=== PATIENT | male | born 1970 | race American Indian/Alaskan Native ===

== ENCOUNTER 2017-08-03 17:45 | Observation (INO) | payer OTHER ==
[2017-08-03 17:45] VITALS: BMI 27.0
--- NOTE | 2017-08-03 18:21 | C.PDOC ---
History Of Present Illness <Patti Donovan - Last Filed: 08/03/17 19:10> <Taylor Allison - Last Filed: 08/03/17 21:52> 46 y/o male presents to ED with complaints of "squeezing" chest pain for 3 days. Patient states he went to see PMD who told him he did not have ECG machine in office and advised he come to ED for evaluation. Patient is speaking in full sentences and denies, cough, sob, nausea, vomiting or any other complaints at this time. (Patti Donovan) History Per: Patient History/Exam Limitations: no limitations Onset/Duration Of Symptoms: Days Current Symptoms Are (Timing): Still Present <Patti Donovan - Last Filed: 08/03/17 19:10> <Taylor Allison - Last Filed: 08/03/17 21:52> Time Seen by Provider: 08/03/17 18:03 Chief Complaint (Nursing): Chest Pain Past Medical History Reviewed: Historical Data, Nursing Documentation, Vital Signs - Medical History PMH: No Chronic Diseases Surgical History: No Surg Hx Family History: States: No Known Family Hx - Social History Hx Alcohol Use: Yes Hx Substance Use: No - Immunization History Hx Tetanus Toxoid Vaccination: No Hx Influenza Vaccination: No Hx Pneumococcal Vaccination: No <Patti Donovan - Last Filed: 08/03/17 19:10> Vital Signs: Last Vital Signs Temp 98.6 F 08/03/17 19:43 Pulse 82 08/03/17 20:15 Resp 14 08/03/17 20:15 BP 124/72 08/03/17 20:15 Pulse Ox 96 08/03/17 20:15 Review Of Systems Constitutional: Negative for: Fever, Chills Cardiovascular: Positive for: Chest Pain Respiratory: Negative for: Cough, Shortness of Breath Gastrointestinal: Negative for: Nausea, Vomiting Skin: Negative for: Rash <Patti Donovan - Last Filed: 08/03/17 19:10> Physical Exam - Physical Exam Appears: Non-toxic, No Acute Distress Skin: Warm, Dry, No Rash Head: Atraumatic, Normacephalic Oral Mucosa: Moist Neck: Supple Chest: Symmetrical Cardiovascular: Rhythm Regular Respiratory: Normal Breath Sounds, No Rales, No Rhonchi, No Wheezing Gastrointestinal/Abdominal: Soft, No Tenderness, No Guarding, No Rebound Extremity: Normal ROM, Capillary Refill (<2 seconds) Neurological/Psych: Oriented x3 <Patti Donovan - Last Filed: 08/03/17 19:10> ED Course And Treatment - Laboratory Results Result Diagrams: 08/03/17 18:34 02 18:34 ECG: Interpreted By Me, Viewed By Me ECG Rhythm: Sinus Rhythm Interpretation Of ECG: Diffuse T wave abnormality Rate From EC (BPM ) O2 Sat by Pulse Oximetry: 98 (RA) Pulse Ox Interpretation: Normal - Radiology CXR: Interpreted by Me CXR Interpretation: Yes: No Acute Disease Progress Note: ECG, CXR, Blood work, UA ordered. Aspirin administered <Patti Donovan - Last Filed: 08/03/17 19:10> - Laboratory Results Result Diagrams: 08/03/17 18:34 08/03/17 18:34 <Taylor Allison - Last Filed: 08/03/17 21:52> Disposition - Disposition Disposition Time: 19:10 <Patti Donovan - Last Filed: 08/03/17 19:10> <Taylor Allison - Last Filed: 08/03/17 21:52> - Disposition Condition: FAIR - Clinical Impression Clinical Impression: Chest pain - PA / DIE CLEANER / Resident Statement MD/DO has reviewed & agrees with the documentation as recorded. - Scribe Statement The provider has reviewed the documentation as recorded by the Scribe <Patti Donovan - Last Filed: 08/03/17 19:10> <Taylor Allison - Last Filed: 08/03/17 21:52> - Scribe Statement Diaz Parker All medical record entries made by the Scribe were at my direction and personally dictated by me. I have reviewed the chart and agree that the record accurately reflects my personal performance of the history, physical exam, medical decision making, and the department course for this patient. I have also personally directed, reviewed, and agree with the discharge instructions and disposition. (Patti Donovan) Physician Patient Turnover Patient Signed Over To: Taylor Allison Handoff Comments: troponin pending, dispo pending <Patti Donovan - Last Filed: 08/03/17 19:10> Addendum <Patti Donovan - Last Filed: 08/03/17 19:10> <Taylor Allison - Last Filed: 08/03/17 21:52> Addendum: 08/03/17 21:51 Patient having constant substernal chest pain described as pressure and squeezing, not associated with SOB, palpitations, nausea/vomiting, food intake. EKG shows T wave inversions III, aVF + LVH. Discussed patient with Dr. Kyle , agrees with tele obs for chest pain, r/o ACS. Would like Dr. Beckford for cardio , consult entered. (Taylor Allison)
[2017-08-03 18:42] LABS: BASO # 0.1 K/uL (0.0-0.2); BASO % 0.8 % (0.0-2.0); EOS # 0.1 K/uL (0.0-0.7); EOS % 0.8 % (0.0-4.0); HEMOGLOBIN 13.6 g/dL (12.0-18.0); LYMPH # 2.5 K/uL (1.0-4.3); LYMPH % 36.2 % (20.0-40.0); MEAN CELL VOLUME 80.6 fL (80.0-94.0); MEAN CORPUSCULAR HEMOGLOBIN 26.6 pg (27.0-31.0); MEAN PLATELET VOLUME 9.4 fL (7.2-11.7); MONO % 14.1 % (0.0-10.0); NEUT # 3.3 K/uL (1.8-7.0); NEUT % 48.1 % (50.0-75.0); RBC 5.1 Mil/uL (4.40-5.90); RED CELL DISTRIBUTION WIDTH 13.3 % (11.5-14.5); WHITE BLOOD COUNT 6.8 K/uL (4.8-10.8)
[2017-08-03 18:50] LABS: ALB/GLOB RATIO 1.3 (1.0-2.1); ALBUMIN 4.2 g/dL (3.5-5.0); ALT/SGPT 23 U/L (21-72); AST/SGOT 19 U/L (17-59); BLOOD UREA NITROGEN 13 mg/dL (9-20); CALCIUM 8.5 mg/dl (8.6-10.4); GFR AFRICAN-AMERICAN > 60; GFR NON-AFRICAN AMERICAN > 60
[2017-08-03 18:51] LABS: INR 1.1; PROTHROMBIN TIME 12.6 SECONDS (9.7-12.2)
[2017-08-03 18:59] LABS: CK-MB 0.85 ng/mL (0.0-3.38)
[2017-08-03 19:20] LABS: URINE BACTERIA RARE (<OCC)
[2017-08-03 19:21] LABS: PH,URINE 6.5 (5.0-8.0); URINE BILIRUBIN NEGATIVE (NEGATIVE); URINE BLOOD NEGATIVE (NEGATIVE); URINE CLARITY CLEAR (Clear); URINE COLOR YELLOW (YELLOW); URINE GLUCOSE (UA) NEGATIVE (Normal); URINE LEUKOCYTE ESTERASE NEGATIVE Leu/uL (Negative); URINE NITRATE NEGATIVE (NEGATIVE); URINE PROTEIN NEGATIVE (NEGATIVE); URINE UROBILINOGEN 0.2 mg/dL (0.2-1.0)
[2017-08-04 02:51] LABS: CK-MB 0.78 ng/mL (0.0-3.38)
--- NOTE | 2017-08-04 08:44 | RAD ---
Chest x-ray single frontal view History: Chest pain. Comparison: None available. Findings: No focal infiltrate or effusion. Heart size within normal limits. Impression: No focal infiltrate or effusion.
[2017-08-04] MEDS: Enoxaparin 40 mg Syringe SC SCH (12:33)
[2017-08-04 13:54] LABS: BASO % 0.6 % (0.0-2.0); EOS % 0.7 % (0.0-4.0); HEMOGLOBIN 14.5 g/dL (12.0-18.0); LYMPH # 1.8 K/uL (1.0-4.3); LYMPH % 36.6 % (20.0-40.0); MEAN CORPUSCULAR HEMOGLOBIN 26.9 pg (27.0-31.0); MEAN CORPUSCULAR HGB CONC 33.2 g/dL (33.0-37.0); MEAN PLATELET VOLUME 9.3 fL (7.2-11.7); MONO # 0.6 K/uL (0.0-0.8); MONO % 12.3 % (0.0-10.0); NEUT # 2.4 K/uL (1.8-7.0); NEUT % 49.8 % (50.0-75.0); NRBC % 0.1 % (0.0-2.0); RBC 5.41 Mil/uL (4.40-5.90); RED CELL DISTRIBUTION WIDTH 13.4 % (11.5-14.5); WHITE BLOOD COUNT 4.8 K/uL (4.8-10.8)
[2017-08-04 14:16] LABS: ALB/GLOB RATIO 1.2 (1.0-2.1); ALBUMIN 4.2 g/dL (3.5-5.0); ALT/SGPT 23 U/L (21-72); AST/SGOT 20 U/L (17-59); BLOOD UREA NITROGEN 12 mg/dL (9-20); GFR AFRICAN-AMERICAN > 60; GFR NON-AFRICAN AMERICAN > 60
[2017-08-04 15:10] LABS: CK-MB 0.66 ng/mL (0.0-3.38)
--- NOTE | 2017-08-04 16:04 | CP.PCM.CON ---
<Benjamín Barrera - Last Filed: 08/04/17 17:55> History of Present Illness - History of Present Illness History of Present Illness: Cardiology Consult Note for Dr. Beckford CC: Chest Pain Pt is a 46 yo M with no significant past medical history presents to due to chest pain for the past 3 days. Pt states that CP is constant, midsternal, and feels like a squeezing sensation. Pt denies radiation. Pt stated that he did feel bloated and that the chest pain could be due to increased gas. He tried drinking ellyn shruti to calm is stomach, but that did not relieve the pain. Pt went to his PMDs office and was instructed to proceed to the ED. Pt states that pain is worsened with exertion and with deep inspiration. Pt denies any alleviating factors or prior occurrences. Currently, patient states that pain is still present, but improving. Pt denies SOB, palpitations, n/v/d, abdominal pain, fever, chills, MELÉNDEZ, or dizziness. PMH: Denied Surg: Foot surgery All: NKDA FHx: non-contributory SH: Social EtOH use, denied tobacco or illicit drug use PMD: Dr. Partida Review of Systems - Review of Systems Review of Systems: 12 point ROS reviewed and is negative other than what is stated in HPI. Past Patient History - Infectious Disease Hx of Infectious Diseases: None - Past Social History Smoking Status: Never Smoked - MUSCULOSKELETAL/RHEUMATOLOGICAL Hx Falls: No - PSYCHIATRIC Hx Substance Use: No - SURGICAL HISTORY Hx Surgeries: Yes Hx Orthopedic Surgery: Yes - ANESTHESIA Hx Anesthesia: Yes Hx Anesthesia Reactions: No Meds Allergies/Adverse Reactions: Allergies Allergy/AdvReac Type Severity Reaction Status Date / Time No Known Allergies Allergy Verified 08/03/17 17:51 - Medications Medications: Current Medications Enoxaparin Sodium (Lovenox) 40 mg SC DAILY [facility] Last Admin: 08/04/17 12:33 Dose: 40 mg Physical Exam - Constitutional Appears: No Acute Distress - Head Exam Head Exam: NORMAL INSPECTION - Eye Exam Eye Exam: Normal appearance - ENT Exam ENT Exam: Normal Exam - Neck Exam Neck exam: Positive for: Normal Inspection - Respiratory Exam Respiratory Exam: Clear to Auscultation Bilateral. absent: Accessory Muscle Use , Prolonged Expiratory Phase, Rales, Rhonchi, Wheezes - Cardiovascular Exam Cardiovascular Exam: RRR, +S1, +S2. absent: Diastolic murmur, Gallop, Rubs, Systolic Murmur - GI/Abdominal Exam GI & Abdominal Exam: Soft. absent: Distended, Guarding, Rebound, Tenderness - Extremities Exam Extremities exam: Positive for: normal inspection - Back Exam Back exam: NORMAL INSPECTION - Skin Skin Exam: Dry, Intact, Normal Color, Warm Results - Vital Signs Recent Vital Signs: Last Vital Signs Temp 98.1 F 08/04/17 07:15 Pulse 56 L 08/04/17 07:15 Resp 20 08/04/17 07:15 BP 100/64 08/04/17 07:15 Pulse Ox 97 08/04/17 07:15 - Labs Result Diagrams: 08/04/17 13:41 08/04/17 13:41 Labs: Laboratory Results - last 24 hr 08/03/17 08/03/17 08/03/17 18:34 18:34 18:34 WBC 6.8 RBC 5.10 Hgb 13.6 Hct 41.1 MCV 80.6 MCH 26.6 L MCHC 33.0 RDW 13.3 Plt Count 189 MPV 9.4 Neut % (Auto) 48.1 L Lymph % (Auto) 36.2 [place] % (Auto) 14.1 H Eos % (Auto) 0.8 Baso % (Auto) 0.8 Neut # (Auto) 3.3 Lymph # (Auto) 2.5 [place] # (Auto) 1.0 H Eos # (Auto) 0.1 Baso # (Auto) 0.1 PT 12.6 H INR 1.1 APTT 33 Sodium 141 Potassium 3.8 Chloride 100 Carbon Dioxide 30 Anion Gap 14 BUN 13 Creatinine 1.1 Est GFR ( Amer) > 60 Est GFR (Non-Af Amer) > 60 Random Glucose 99 Calcium 8.5 L Total Bilirubin 0.4 AST 19 ALT 23 Alkaline Phosphatase 45 Total Creatine Kinase 211 H CK-MB (Mass) 0.85 Troponin I < 0.0120 Total Protein 7.4 Albumin 4.2 Globulin 3.2 Albumin/Globulin Ratio 1.3 Urine Color Urine Clarity Urine pH Ur Specific [place] Urine Protein Urine Glucose (UA) Urine Ketones Urine Blood Urine Nitrate Urine Bilirubin Urine Urobilinogen Ur Leukocyte Esterase Urine WBC (Auto) Urine RBC (Auto) Urine Bacteria 08/03/17 08/04/17 08/04/17 19:13 02:25 13:41 WBC 4.8 RBC 5.41 Hgb 14.5 Hct 43.8 MCV 81.0 MCH 26.9 L MCHC 33.2 RDW 13.4 Plt Count 187 MPV 9.3 Neut % (Auto) 49.8 L Lymph % (Auto) 36.6 [place] % (Auto) 12.3 H Eos % (Auto) 0.7 Baso % (Auto) 0.6 Neut # (Auto) 2.4 Lymph # (Auto) 1.8 [place] # (Auto) 0.6 Eos # (Auto) 0.0 Baso # (Auto) 0.0 PT INR APTT Sodium Potassium Chloride Carbon Dioxide Anion Gap BUN Creatinine Est GFR ( Amer) Est GFR (Non-Af Amer) Random Glucose Calcium Total Bilirubin AST ALT Alkaline Phosphatase Total Creatine Kinase 197 H CK-MB (Mass) 0.78 Troponin I < 0.0120 Total Protein Albumin Globulin Albumin/Globulin Ratio Urine Color Yellow Urine Clarity Clear Urine pH 6.5 Ur Specific [place] 1.020 Urine Protein Negative Urine Glucose (UA) Negative Urine Ketones Negative Urine Blood Negative Urine Nitrate Negative Urine Bilirubin Negative Urine Urobilinogen 0.2 Ur Leukocyte Esterase Negative Urine WBC (Auto) < 1 Urine RBC (Auto) 1 Urine Bacteria Rare 08/04/17 08/04/17 13:41 14:40 WBC RBC Hgb Hct MCV MCH MCHC RDW Plt Count MPV Neut % (Auto) Lymph % (Auto) [place] % (Auto) Eos % (Auto) Baso % (Auto) Neut # (Auto) Lymph # (Auto) [place] # (Auto) Eos # (Auto) Baso # (Auto) PT INR APTT Sodium 140 Potassium 4.4 Chloride 100 Carbon Dioxide 29 Anion Gap 16 BUN 12 Creatinine 0.8 Est GFR ( Amer) > 60 Est GFR (Non-Af Amer) > 60 Random Glucose 82 Calcium 9.0 Total Bilirubin 0.7 AST 20 ALT 23 Alkaline Phosphatase 55 Total Creatine Kinase 186 H CK-MB (Mass) 0.66 Troponin I < 0.0120 Total Protein 7.8 Albumin 4.2 Globulin 3.6 Albumin/Globulin Ratio 1.2 Urine Color Urine Clarity Urine pH Ur Specific [place] Urine Protein Urine Glucose (UA) Urine Ketones Urine Blood Urine Nitrate Urine Bilirubin Urine Urobilinogen Ur Leukocyte Esterase Urine WBC (Auto) Urine RBC (Auto) Urine Bacteria Assessment & Plan - Assessment and Plan (Free Text) Assessment: 46 yo M with no significant past medical history will be evaluated for chest pain and treated accordingly. Plan: 1. Chest Pain - ACS ruled out as troponin negative x3 - EKG showed signs of left heart strain - Nuclear stress test showed mild anterolateral defect - Plan for Cardiac catherization on Monday - Cont ASA, Lopressor 2. GI/DVT PPx - As per primary Pt seen and discussed in detail with Dr. Beckford. Naveen Barrera, PGY1 <Miguel A Beckford - Last Filed: 08/04/17 18:01> Meds - Medications Medications: Current Medications Aspirin (Aspirin Chewable) 81 mg PO DAILY [facility] Enoxaparin Sodium (Lovenox) 40 mg SC DAILY [facility] Last Admin: 08/04/17 12:33 Dose: 40 mg Metoprolol Tartrate (Lopressor) 25 mg PO BRKDIN [facility] Results - Vital Signs Recent Vital Signs: Last Vital Signs Temp 98.4 F 08/04/17 16:34 Pulse 66 08/04/17 16:34 Resp 20 08/04/17 16:34 BP 115/73 08/04/17 16:34 Pulse Ox 95 08/04/17 16:34 - Labs Result Diagrams: 08/04/17 13:41 08/04/17 13:41 Labs: Laboratory Results - last 24 hr 08/03/17 08/03/17 08/03/17 18:34 18:34 18:34 WBC 6.8 RBC 5.10 Hgb 13.6 Hct 41.1 MCV 80.6 MCH 26.6 L MCHC 33.0 RDW 13.3 Plt Count 189 MPV 9.4 Neut % (Auto) 48.1 L Lymph % (Auto) 36.2 [place] % (Auto) 14.1 H Eos % (Auto) 0.8 Baso % (Auto) 0.8 Neut # (Auto) 3.3 Lymph # (Auto) 2.5 [place] # (Auto) 1.0 H Eos # (Auto) 0.1 Baso # (Auto) 0.1 PT 12.6 H INR 1.1 APTT 33 Sodium 141 Potassium 3.8 Chloride 100 Carbon Dioxide 30 Anion Gap 14 BUN 13 Creatinine 1.1 Est GFR ( Amer) > 60 Est GFR (Non-Af Amer) > 60 Random Glucose 99 Calcium 8.5 L Total Bilirubin 0.4 AST 19 ALT 23 Alkaline Phosphatase 45 Total Creatine Kinase 211 H CK-MB (Mass) 0.85 Troponin I < 0.0120 Total Protein 7.4 Albumin 4.2 Globulin 3.2 Albumin/Globulin Ratio 1.3 Urine Color Urine Clarity Urine pH Ur Specific [place] Urine Protein Urine Glucose (UA) Urine Ketones Urine Blood Urine Nitrate Urine Bilirubin Urine Urobilinogen Ur Leukocyte Esterase Urine WBC (Auto) Urine RBC (Auto) Urine Bacteria 08/03/17 08/04/17 08/04/17 19:13 02:25 13:41 WBC 4.8 RBC 5.41 Hgb 14.5 Hct 43.8 MCV 81.0 MCH 26.9 L MCHC 33.2 RDW 13.4 Plt Count 187 MPV 9.3 Neut % (Auto) 49.8 L Lymph % (Auto) 36.6 [place] % (Auto) 12.3 H Eos % (Auto) 0.7 Baso % (Auto) 0.6 Neut # (Auto) 2.4 Lymph # (Auto) 1.8 [place] # (Auto) 0.6 Eos # (Auto) 0.0 Baso # (Auto) 0.0 PT INR APTT Sodium Potassium Chloride Carbon Dioxide Anion Gap BUN Creatinine Est GFR ( Amer) Est GFR (Non-Af Amer) Random Glucose Calcium Total Bilirubin AST ALT Alkaline Phosphatase Total Creatine Kinase 197 H CK-MB (Mass) 0.78 Troponin I < 0.0120 Total Protein Albumin Globulin Albumin/Globulin Ratio Urine Color Yellow Urine Clarity Clear Urine pH 6.5 Ur Specific [place] 1.020 Urine Protein Negative Urine Glucose (UA) Negative Urine Ketones Negative Urine Blood Negative Urine Nitrate Negative Urine Bilirubin Negative Urine Urobilinogen 0.2 Ur Leukocyte Esterase Negative Urine WBC (Auto) < 1 Urine RBC (Auto) 1 Urine Bacteria Rare 08/04/17 08/04/17 13:41 14:40 WBC RBC Hgb Hct MCV MCH MCHC RDW Plt Count MPV Neut % (Auto) Lymph % (Auto) [place] % (Auto) Eos % (Auto) Baso % (Auto) Neut # (Auto) Lymph # (Auto) [place] # (Auto) Eos # (Auto) Baso # (Auto) PT INR APTT Sodium 140 Potassium 4.4 Chloride 100 Carbon Dioxide 29 Anion Gap 16 BUN 12 Creatinine 0.8 Est GFR ( Amer) > 60 Est GFR (Non-Af Amer) > 60 Random Glucose 82 Calcium 9.0 Total Bilirubin 0.7 AST 20 ALT 23 Alkaline Phosphatase 55 Total Creatine Kinase 186 H CK-MB (Mass) 0.66 Troponin I < 0.0120 Total Protein 7.8 Albumin 4.2 Globulin 3.6 Albumin/Globulin Ratio 1.2 Urine Color Urine Clarity Urine pH Ur Specific [place] Urine Protein Urine Glucose (UA) Urine Ketones Urine Blood Urine Nitrate Urine Bilirubin Urine Urobilinogen Ur Leukocyte Esterase Urine WBC (Auto) Urine RBC (Auto) Urine Bacteria Attending/Attestation - Attestation I have personally seen and examined this patient.: Yes I have fully participated in the care of the patient.: Yes I have reviewed all pertinent clinical information: Yes Notes (Text): 08/04/17 18:00 46 year old male with typical CP Stress test +ve plan for cath on monday
--- NOTE | 2017-08-04 18:00 | CARD ---
APPROVED REPORT Protocol: ANDRESSA Test Type: Stress Nuclear Test Indications: CHEST PAIN Medications: LIST SCAN Medical History: CHEST PAIN Target HR: 176 bpm Resting ECG: normal Resting Heart Rate: 65 bpm Resting Blood Pressure: 120/80mmHg submaximum (85%): 150 bpm TEST SUMMARY PRETESTWARM-UP08:[id number]/80.0. EXERCISESTAGE 103:[id number]/80.0. EXERCISESTAGE 203:[id number]/80.0. EXERCISESTAGE 303:[id number]/80.0. EXERCISESTAGE 401:[id number]/80.0. [id number]:[id number]/70.0. POST EXERCISE Reason for Termination: Fatigue Target HR: No Max HR: 173 bpm 98% of Maximum Predicted HR: 176 bpm Exercise duration: 10:18 min:sec, 4 Stage Exercise capacity: 13.4METs Max Blood Pressure: 170/70mmHg Blood Pressure response to exercise: normal resting BP - appropriate response Heart Rate response to exercise: appropriate Chest Pain: No, none Angina index: 0 Arrhythmia: No, none ST Change: Yes, Depression upsloping Deviation: 0 mm EXAM: Myocardial Perfusion STRESS/REST Imaging Protocol The imaging protocol used to acquire images was Stress Tc-99m/rest Tc-99m 1 day Rest Spect myocardial perfusion imaging was performed in supine position 45 minutes following the injection of 32.2 mCi of Tc-99 Myoview. Gated Stress Spect was performed 45 minutes after intravenous 12.7 mCi Tc-99 Myoview injection. The images were gated to evaluate regional wall motion and calculate ventricular ejection fraction.Images were reconstructed using backfilter projection method in short horizontal and verticle long axis. Spect slices were generated. RESTING DATA EDV76.95vkOC7.10L/min ESV28.00mlMyocardial Qkjh621.00g Av. Heart Rate65.00bpm EF63.00% STRESS DATA EDV83.60wrAL1.80L/min ESV25.00mlMyocardial Dohf199.00g EF70.00% Regional WT score at stress:0.00 Regional WM score at stress:0.00 Summed WT score at stress:1.00 Av. Heart Rate82.00bpmSummed WM score at stress:0.00 Study quality was good. Left Ventricular size was Normal at Rest and Stress. LV Perfusion 1 Perfusion Defect Location: mid anterolateral Perfusion Defect Size: Small (1-2 segments) Perfusion Defect Severity: Mild Type of Perfusion Defect: Reversible LV Perf. Quant 17 Seg. SSS4.00 17 Seg. SRS0.00 17 Seg. SDS4.00 Stress Defect Extent (% LAD)0.00Rest Defect Extent (% LAD)0.00Rev. Defect Extent (% LAD)0.00 Stress Defect Extent (% LCX)31.30Rest Defect Extent (% LCX)0.00Rev. Defect Extent (% LCX)31.30 Stress Defect Extent (% RCA)0.00Rest Defect Extent (% RCA)0.00Rev. Defect Extent (% RCA)0.00 Stress Defect Extent (% ELLIOTT)6.50Rest Defect Extent (% ELLIOTT)0.00Rev. Defect Extent (% ELLIOTT)6.50 Other Information Quality:Good Overall Exercise Capacity: Normal IMPRESSION Abnormal Myocardial Perfusion exercise stress study Metabolism/Perfusion Reversible/Irreversible: Small sized mild intensity reversible anterolateral defect Conclusion 1. - Ischemia in LAD / diagonal territory 2. - Normal LVEF
--- NOTE | 2017-08-04 19:18 | CARD ---
APPROVED REPORT EKG Measurement Heart [id number] IN [id number] <Conclusion> Normal sinus rhythm Voltage criteria for left ventricular hypertrophy Nonspecific T wave abnormality Abnormal ECG
[2017-08-05 02:17] VITALS: RESP 20
--- NOTE | 2017-08-05 06:37 | HP ---
CHIEF COMPLAINT: Chest pain. HISTORY OF PRESENT ILLNESS: Mr. Porter Vergara is a 46-year-old male with a nonsignificant past medical history. He came in with complaining of squeezing chest pain for three days. The patient states that he went to see his PMD, who told him that he did not have EKG machine in the office and advised him to go to the emergency room for evaluation. The patient is speaking in full sentences and denies cough or shortness of breath. No nausea, vomiting, or diarrhea. No hematuria or hematochezia. No fever. No chills. No headache or dizziness, and it was still present at the time of admission. PAST MEDICAL HISTORY: Nonsignificant. FAMILY HISTORY: Father and mother noncontributory. HABITS: Smoking, no. Alcohol, yes. Substance abuse, no. ALLERGIES: THE PATIENT IS NOT ALLERGIC WITH ANY MEDICATIONS. HOME MEDICATIONS: Denied. REVIEW OF SYSTEMS: The patient is seen and examined at the bedside, looking comfortable. No nausea, vomiting, or diarrhea. No hematuria. No hematochezia. No headache. No dizziness. No swelling of the leg. No shortness of breath. No fever. No chills. PHYSICAL EXAMINATION: VITAL SIGNS: Temperature 98.4, pulse 71, blood pressure 190/72, respiratory rate 20. HEENT: Head normocephalic, atraumatic. Eyes, PERRLA. Extraocular muscles intact. Conjunctivae clear. Nose patent. Mucous membranes moist. NECK: Supple. No carotid bruit. No JVD or thyromegaly. CHEST: Bilaterally symmetrical. HEART: S1 and S2 positive. LUNGS: Clear to auscultation. ABDOMEN: Soft. Bowel sounds positive. No organomegaly. EXTREMITIES: No edema, no cyanosis. NEUROLOGICAL: The patient is awake, alert. Moving all four extremities. No focal deficits. LABORATORY DATA: White blood cell 4.8, hemoglobin 14.5, hematocrit 43.8, and platelets 187. Sodium 140, potassium 4.4, BUN 12, creatinine 0.8, glucose 82, and calcium 9. ASSESSMENT AND PLAN: Mr. Porter Vergara is a 46-year-old male, came with chest pain, went for stress test, seen by Dr. Shakeel Grady, senior stock plan administrator. Acute coronary syndrome ruled out as troponin negative x3. EKG showed signs of left heart strain. Nuclear stress test showed mild anterolateral defect. Plan for cardiac catheterization on Monday. Continue aspirin and Lopressor. Gastrointestinal and deep venous thrombosis prophylaxis. Discussion done with the patient and staff. Repeat labs tomorrow, especially cholesterol. We will follow. Nanette Kyle MD
[2017-08-05 07:13] LABS: HEMOGLOBIN 14.6 g/dL (12.0-18.0); MEAN CORPUSCULAR HGB CONC 33.7 g/dL (33.0-37.0); MEAN PLATELET VOLUME 9.5 fL (7.2-11.7); RBC 5.4 Mil/uL (4.40-5.90); RED CELL DISTRIBUTION WIDTH 13.5 % (11.5-14.5); WHITE BLOOD COUNT 4.5 K/uL (4.8-10.8)
--- NOTE | 2017-08-05 07:28 | CP.PCM.PN ---
<HollyBenjamín - Last Filed: 08/05/17 07:16> Subjective - Date & Time of Evaluation Date of Evaluation: 08/05/17 Time of Evaluation: 07:16 - Subjective Subjective: Cardiology Progress Note for Dr. Beckford Pt seen and examined at bedside. No acute overnight events. Pt states that CP improving. Pt denied SOB, n/v/d, abdominal pain, fever, chills, MELÉNDEZ or dizziness. Objective - Vital Signs/Intake and Output Vital Signs (last 24 hours): Temp Pulse Resp BP Pulse Ox 98 F 52 L 20 112/67 94 L 08/05/17 00:00 08/05/17 04:00 08/05/17 00:00 08/05/17 00:00 08/05/17 00:00 Intake and Output: 08/05/17 08/05/17 06:59 18:59 Intake Total 500 Balance 500 - Medications Medications: Current Medications Aspirin (Aspirin Chewable) 81 mg PO DAILY [facility] Enoxaparin Sodium (Lovenox) 40 mg SC DAILY [facility] Last Admin: 08/04/17 12:33 Dose: 40 mg Metoprolol Tartrate (Lopressor) 25 mg PO BIDAC [facility] - Labs Labs: 08/05/17 06:39 08/04/17 13:41 PT 12.6 SECONDS (9.7-12.2) H 08/03/17 18:34 INR 1.1 08/03/17 18:34 APTT 33 SECONDS (21-34) 08/03/17 18:34 - Constitutional Appears: No Acute Distress - Head Exam Head Exam: NORMAL INSPECTION - Eye Exam Eye Exam: Normal appearance - ENT Exam ENT Exam: Normal Exam - Neck Exam Neck Exam: Normal Inspection - Respiratory Exam Respiratory Exam: Clear to Ausculation Bilateral. absent: Accessory Muscle Use , Rales, Rhonchi, Wheezes, Respiratory Distress - Cardiovascular Exam Cardiovascular Exam: RRR, +S1, +S2. absent: Clicks, Gallop, Rubs, Murmur - GI/Abdominal Exam GI & Abdominal Exam: Soft. absent: Distended, Guarding, Tenderness, Rebound - Extremities Exam Extremities Exam: Normal Inspection - Back Exam Back Exam: NORMAL INSPECTION - Neurological Exam Neurological Exam: Alert, Awake, Oriented x3 - Skin Skin Exam: Dry, Intact, Normal Color, Warm Assessment and Plan - Assessment and Plan (Free Text) Assessment: 46 yo M with no significant past medical history will be evaluated for chest pain. Pt had abnormal findings on stress test and will have cardiac catherization on Monday. Plan: 1. Chest Pain - ACS ruled out as troponin negative x3 - EKG showed signs of left heart strain - Echo ordered - Nuclear stress test showed mild anterolateral defect - Plan for Cardiac catherization on Monday - Cont ASA, Lopressor 2. GI/DVT PPx - As per primary Pt seen and discussed in detail with Dr. Beckford. Naveen Barrera, PGY1 <Miguel A Beckford - Last Filed: 08/05/17 08:23> Objective - Vital Signs/Intake and Output Vital Signs (last 24 hours): Temp Pulse Resp BP Pulse Ox 98.4 F 62 20 107/69 96 08/05/17 07:15 08/05/17 07:15 08/05/17 07:15 08/05/17 07:15 08/05/17 07:15 Intake and Output: 08/05/17 08/05/17 06:59 18:59 Intake Total 500 Balance 500 - Medications Medications: Current Medications Aspirin (Aspirin Chewable) 81 mg PO DAILY [facility] Enoxaparin Sodium (Lovenox) 40 mg SC DAILY [facility] Last Admin: 08/04/17 12:33 Dose: 40 mg Metoprolol Tartrate (Lopressor) 25 mg PO BID [facility] - Labs Labs: 08/05/17 06:39 08/04/17 13:41 PT 12.6 SECONDS (9.7-12.2) H 08/03/17 18:34 INR 1.1 08/03/17 18:34 APTT 33 SECONDS (21-34) 08/03/17 18:34 Attending/Attestation - Attestation I have personally seen and examined this patient.: Yes I have fully participated in the care of the patient.: Yes I have reviewed all pertinent clinical information, including history, physical exam and plan: Yes Notes (Text): 08/05/17 08:22 Echo pending Decrease dose of BB plan for cath on monday NPO p MN on Monday
[2017-08-05 08:19] LABS: HDL CHOLESTEROL 32 mg/dL (30-70)
[2017-08-05 08:23] LABS: ALB/GLOB RATIO 1.1 (1.0-2.1); ALBUMIN 3.9 g/dL (3.5-5.0); ALT/SGPT 28 U/L (21-72); AST/SGOT 22 U/L (17-59); BLOOD UREA NITROGEN 12 mg/dL (9-20); CALCIUM 8.9 mg/dl (8.6-10.4); GFR AFRICAN-AMERICAN > 60; GFR NON-AFRICAN AMERICAN > 60
[2017-08-05 08:30] LABS: LDL CHOLESTEROL 100 mg/dL (0-129)
[2017-08-05] MEDS: Enoxaparin 40 mg Syringe SC SCH (10:27)
[2017-08-06] MEDS: Enoxaparin 40 mg Syringe SC SCH (09:51)
--- NOTE | 2017-08-06 19:42 | CARD ---
APPROVED REPORT EKG Measurement Heart [id number] TX [id number] <Conclusion> Normal sinus rhythm Possible Left atrial enlargement Left ventricular hypertrophy Nonspecific T wave abnormality Abnormal ECG
--- NOTE | 2017-08-07 03:13 | PN ---
DATE: SUBJECTIVE: The patient is seen and examined at the bedside, looking comfortable. Chest pressure has gone. No nausea, vomiting or diarrhea. Tolerating food very well. No hematuria. No hematochezia. No headache. No dizziness. Appetite is okay. Bowel movement is okay. PHYSICAL EXAMINATION: VITAL SIGNS: Temperature 98.3, pulse 79, blood pressure 115/74, and respiratory rate 20. HEENT: Head: Normocephalic, atraumatic. Eyes: PERRLA. Extraocular movements are intact. Conjunctivae clear. Nose patent. Mucous membranes are moist. NECK: Supple. No carotid bruits, JVD or thyromegaly. CHEST: Bilaterally symmetrical. HEART: S1 and S2 positive. LUNGS: Clear to auscultation. ABDOMEN: Soft. Bowel sounds are present. No organomegaly. EXTREMITIES: No edema. No cyanosis. NEUROLOGIC: The patient is awake, alert, moving all four extremities. No focal deficit. MEDICATIONS: Aspirin, Crestor, Lopressor, Lovenox and Pepcid. LABORATORY DATA: White blood cells 4.5, hemoglobin 14.6, hematocrit 43.2 and platelets 198. Sodium 138, potassium 4.0, BUN 12, creatinine 0.9, TSH 0.33. ASSESSMENT AND PLAN: Mr. Porter Vergara is a 46-year-old male with no significant past medical history, came with chest pain like pressure. Stress test done by Dr. Miguel A Beckford and echo was done also, suggested that the patient need catheterization. Plan is to do catheterization on Monday, n.p.o. midnight for catheterization. Dr. Beckford decreased the beta-blockers. Acute coronary syndrome ruled out as troponin is negative x3. EKG showed signs of left heart strain. Nuclear stress test and echo done. Gastrointestinal and deep venous thrombosis prophylaxis. Repeat labs. We will follow. Nanette Kyle MD UBALDO
[2017-08-07 09:22] VITALS: TEMP 97.9
--- NOTE | 2017-08-07 09:24 | PN ---
DATE: 08/05/2017 SUBJECTIVE: The patient was seen and examined on the bedside, looking comfortable. No nausea, vomiting, or diarrhea. No hematuria or hematochezia. No swelling of the legs. Still having chest pain, but little bit better. PHYSICAL EXAMINATION: VITAL SIGNS: Temperature 98, pulse 52, respiratory 20, blood pressure 112/67, pulse oximetry of 94. HEENT: Head normocephalic, atraumatic. Eyes, PERRLA. Extraocular muscles intact. Conjunctivae clear. Nose patent. Mucous membranes are moist. NECK: Supple. No carotid bruit, JVD or thyromegaly. CHEST: Bilaterally symmetrical. HEART: S1 and S2 positive. LUNGS: Clear to auscultation. ABDOMEN: Soft. Bowel sounds positive. No organomegaly. EXTREMITIES: No edema. No cyanosis. NEUROLOGIC: Patient is awake and alert. Moving all 4 extremities. No focal deficits. MEDICATIONS: Aspirin, Lovenox, Lopressor. LABORATORY DATA: White blood cells 4.5, hemoglobin 14.6, hematocrit 43.2, platelets 190. Sodium 140, potassium 4.4, BUN 12, creatinine 0.8, glucose 82. ASSESSMENT AND PLAN: 46 years old male with leukopenia, came with chest pain, acute coronary syndrome ruled out as troponin negative x3. EKG showed signs of left heart strain. Echo ordered. Nuclear stress test showed mild anterolateral defect. Plan for cardiac catheterization on Monday. Continue aspirin, Lopressor and gastrointestinal prophylaxis. Appreciate Dr. Beckford input. We will follow up. Nanette Kyle MD UBALDO
--- NOTE | 2017-08-07 09:59 | CP.PCM.PN ---
Subjective - Date & Time of Evaluation Date of Evaluation: 08/07/17 Time of Evaluation: 09:56 - Subjective Subjective: Cardiology Progress Note for Dr. Beckford Pt seen and examined at bedside. No acute overnight events. Pt states that CP has improved. Pt denied SOB, n/v/d, abdominal pain, fever, chills, MELÉNDEZ, or dizziness. Objective - Vital Signs/Intake and Output Vital Signs (last 24 hours): Temp Pulse Resp BP Pulse Ox 97.9 F 64 20 106/68 97 08/07/17 09:21 08/07/17 09:21 08/07/17 09:21 08/07/17 09:21 08/07/17 09:21 - Medications Medications: Current Medications Aspirin (Aspirin Chewable) 81 mg PO DAILY [facility] Last Admin: 08/06/17 09:50 Dose: 81 mg Enoxaparin Sodium (Lovenox) 40 mg SC DAILY [facility] Last Admin: 08/06/17 09:51 Dose: 40 mg Famotidine (Pepcid) 40 mg PO DAILY [facility] Last Admin: 08/06/17 09:50 Dose: 40 mg Metoprolol Tartrate (Lopressor) 25 mg PO DAILY [facility] Last Admin: 08/06/17 09:50 Dose: 25 mg Rosuvastatin Calcium (Crestor) 10 mg PO HS [facility] Last Admin: 08/06/17 21:45 Dose: 10 mg - Labs Labs: 08/05/17 06:39 08/05/17 06:39 PT 12.6 SECONDS (9.7-12.2) H 08/03/17 18:34 INR 1.1 08/03/17 18:34 APTT 33 SECONDS (21-34) 08/03/17 18:34 - Constitutional Appears: No Acute Distress - Head Exam Head Exam: NORMAL INSPECTION - Eye Exam Eye Exam: Normal appearance - ENT Exam ENT Exam: Normal Exam - Neck Exam Neck Exam: Normal Inspection - Respiratory Exam Respiratory Exam: Clear to Ausculation Bilateral. absent: Rales, Rhonchi, Wheezes - Cardiovascular Exam Cardiovascular Exam: RRR, +S1, +S2. absent: Clicks, Gallop, Rubs, Murmur - GI/Abdominal Exam GI & Abdominal Exam: Soft. absent: Distended, Guarding, Tenderness, Rebound - Extremities Exam Extremities Exam: Normal Inspection - Neurological Exam Neurological Exam: Alert, Awake, Oriented x3 - Skin Skin Exam: Dry, Intact, Normal Color, Warm Assessment and Plan - Assessment and Plan (Free Text) Assessment: 46 yo M with no significant past medical history will be evaluated for chest pain. Pt had abnormal findings on stress test and will have cardiac catherization on Monday. Plan: 1. Chest Pain - ACS ruled out as troponin negative x3 - EKG showed signs of left heart strain - Echo showed EF of 57%, E/A 1.1, RVSP 27 mmHg - Nuclear stress test showed mild anterolateral defect - Cardiac catherization showed 55% stenosis of proximal RCA - Cont ASA 325 mg daily - Cont Toprol XL 12.5 mg daily - Cont Crestor 20 mg HS 2. GI/DVT PPx - As per primary Pt seen and discussed in detail with Dr. Beckford. Naveen Barrera, PGY1
[2017-08-07 12:05] LABS: BASO % 0.7 % (0.0-2.0); EOS % 0.5 % (0.0-4.0); HEMOGLOBIN 14.4 g/dL (12.0-18.0); LYMPH # 2.1 K/uL (1.0-4.3); LYMPH % 36.5 % (20.0-40.0); MEAN CELL VOLUME 80.5 fL (80.0-94.0); MEAN CORPUSCULAR HEMOGLOBIN 27.6 pg (27.0-31.0); MEAN CORPUSCULAR HGB CONC 34.2 g/dL (33.0-37.0); MEAN PLATELET VOLUME 9.9 fL (7.2-11.7); MONO # 0.7 K/uL (0.0-0.8); MONO % 12.8 % (0.0-10.0); NEUT # 2.8 K/uL (1.8-7.0); NEUT % 49.5 % (50.0-75.0); NRBC % 0.2 % (0.0-2.0); RBC 5.21 Mil/uL (4.40-5.90); RED CELL DISTRIBUTION WIDTH 13.3 % (11.5-14.5); WHITE BLOOD COUNT 5.7 K/uL (4.8-10.8)
[2017-08-07 12:06] LABS: ALB/GLOB RATIO 1.2 (1.0-2.1); ALBUMIN 4.1 g/dL (3.5-5.0); ALT/SGPT 23 U/L (21-72); AST/SGOT 19 U/L (17-59); BLOOD UREA NITROGEN 14 mg/dL (9-20); GFR AFRICAN-AMERICAN > 60; GFR NON-AFRICAN AMERICAN > 60
[2017-08-07] MEDS ORDERED: Midazolam 2 MG/2 ML VIAL ONE ×2 (13:15→13:40)
[2017-08-07] MEDS ORDERED: Iodixanol 320 MG/ML 200 ML BOTTLE IV ONE (13:15)
[2017-08-07] MEDS ORDERED: Lidocaine 2% Inj (20ml) ONE (13:16)
[2017-08-07] MEDS ORDERED: Nitroglycerin 50mg in D5W 50 MG/250 ML BOTTLE IV ONE (13:44)
--- NOTE | 2017-08-07 14:20 | CARD ---
APPROVED REPORT EXAM: Two-dimensional and M-mode echocardiogram with Doppler and color Doppler. Other Information Quality : GoodRhythm : INDICATION Chest Pain M-Mode DIMENSIONS RVDd1.97 (2.1-3.2cm)Left Atrium (MM)3.50 (2.5-4.0cm) IVSd0.97 (0.7-1.1cm)Aortic Root3.10 (2.2-3.7cm) LVDd5.19 (4.0-5.6cm)Aortic Cusp Exc.1.70 (1.5-2.0cm) PWd0.85 (0.7-1.1cm)FS (%) 30 % LVDs3.61 (2.0-3.8cm)LVEF (%)57 (>50%) Mitral Valve MV E Pkqlbdox98.9cm/sMV A Jknbxzul27.5cm/sE/A ratio1.1 TDI E/Lateral E'0.0E/Medial E'0.0 Tricuspid Valve TR Peak Hetaechv923bo/sTR Peak Gr.[id number] LEFT VENTRICLE The left ventricle is normal size. There is normal left ventricular wall thickness. The left ventricular function is normal. The left ventricular ejection fraction is within the normal range. No regional wall motion abnormalities noted. The left ventricular diastolic function is normal. No left ventricle thrombus noted on this study. There is no ventricular septal defect visualized. There is no left ventricular aneurysm. There is no mass noted in the left ventricle. RIGHT VENTRICLE The right ventricle is normal size. There is normal right ventricular wall thickness. The right ventricular systolic function is normal. ATRIA The left atrium size is normal. The right atrium size is normal. The interatrial septum is intact with no evidence for an atrial septal defect. AORTIC VALVE The aortic valve is normal in structure and function. No aortic regurgitation is present. There is no aortic valvular stenosis. There is no aortic valvular vegetation. MITRAL VALVE The mitral valve is normal in structure and function. There is no evidence of mitral valve prolapse. There is no mitral valve stenosis. There is no mitral valve regurgitation noted. TRICUSPID VALVE The tricuspid valve is normal in structure and function. There is no tricuspid valve regurgitation noted. There is no tricuspid valve prolapse or vegetation. There is no tricuspid valve stenosis. PULMONIC VALVE The pulmonary valve is normal in structure and function. There is no pulmonic valvular regurgitation. There is no pulmonic valvular stenosis. GREAT VESSELS The aortic root is normal in size. The ascending aorta is normal in size. The pulmonary artery is normal. The IVC is normal in size and collapses >50% with inspiration. PERICARDIAL EFFUSION The pericardium appears normal. There is no pleural effusion. <Conclusion> The left ventricular function is normal. The left ventricular ejection fraction is within the normal range. No regional wall motion abnormalities noted. The aortic valve is normal in structure and function. The mitral valve is normal in structure and function.
[2017-08-07 16:19] VITALS: BP 131/80; PULSE 85; O2SAT 95
--- NOTE | 2017-08-07 17:10 | CP.PCM.PN ---
Subjective - Date & Time of Evaluation Date of Evaluation: 08/07/17 Time of Evaluation: 17:09 - Subjective Subjective: PATIENT WAS ADMITTED FOR CHEST PAIN; AAOX3 ; DENIES CHEST PAIN, SOB, NAUSEA OR VOMITING NO SIGN OF DISTRESS NOTED Objective - Vital Signs/Intake and Output Vital Signs (last 24 hours): Temp Pulse Resp BP Pulse Ox 97.9 F 85 20 131/80 95 08/07/17 16:17 08/07/17 16:17 08/07/17 16:17 08/07/17 16:17 08/07/17 16:17 - Medications Medications: Current Medications Aspirin (Aspirin) 325 mg PO DAILY [facility] Enoxaparin Sodium (Lovenox) 40 mg SC DAILY [facility] Last Admin: 08/06/17 09:51 Dose: 40 mg Famotidine (Pepcid) 40 mg PO DAILY [facility] Last Admin: 08/07/17 10:10 Dose: 40 mg Metoprolol Succinate (Toprol Xl) 12.5 mg PO DAILY [facility] Rosuvastatin Calcium (Crestor) 20 mg PO HS [facility] - Labs Labs: 08/07/17 11:37 08/07/17 11:37 PT 12.6 SECONDS (9.7-12.2) H 08/03/17 18:34 INR 1.1 08/03/17 18:34 APTT 33 SECONDS (21-34) 08/03/17 18:34 Assessment and Plan - Assessment and Plan (Free Text) Assessment: PATIENT SEEN AND EXAMINED AT THE BEDSIDE POST CATH RIGHRT GROIN ACCESS POSITIVE DORSALIS PEDIS PULSE BILATERAL NO SIGN OF BLEEDING NOTED TNI X 3 WERE NEGATIVE STRESS TEST SHOW ANTEROLATERAL DEFECT LUNG SOUD CLEAR; POSITIVE BOWEL SOUND ALL [address] BHANDARI AND DR GOMEZ WHO AGREE AND CLEAR PATIENT FOR DC FOLLOW UP WITH DR GOMEZ TOMORROW (08/08/2017) AT HER OFFICE ---CALL TO CONFIRM FOLLOW UP WITH DR BHANDARI IN A WEEK AT HIS OFFICE ---CALL FOR APPOINTMENT CONTINUE ALL YOUR HOME MEDICATION ACTIVITY TOLERATED NEW PRESCRIPTION GIVEN: ASPIRIN 81 MG BY MOUTH DAILY TROPOL 12.5 MG BY MOUTH DAILY CRESTOR 10 MG BY MOUTH AT NIGHT Do not strain during bowel movements for the first 3 to 4 days after the procedure to prevent bleeding from the catheter insertion site. Avoid heavy lifting (more than 10 pounds) and pushing or pulling heavy objects for the first 5 to 7 days after the procedure. Do not participate in strenuous activities for 5 days after the procedure. This includes most sports - jogging, golfing, play tennis, and bowling. You may climb stairs if needed, but walk up and down the stairs more slowly than usual. Gradually increase your activities until you reach your normal activity level within one week after the procedure. CALL DR GOMEZ OR GO TO THE EMERGENCY ROOM IF SYMPTOMS RETURN OR BLEEDING IN THE RIGHT GROIN OR WORSENING DISCUSS WITH PATIENT WHA AGREE AND VERBALIZED UNDERSTANDING
--- NOTE | 2017-08-08 00:02 | CARDCATH ---
PROCEDURE DATE: 08/07/2017 INDICATIONS: The patient is a 46-year-old male who presented to [facility] with complaints of substernal chest pain while he was working. He accompanied of shortness of breath radiating to the left arm. He underwent a nuclear stress test which was suggestive for ischemia. He reports he was brought to the labor union business representative for further evaluation and treatment. PROCEDURES PERFORMED: Left heart catheterization with selective left and right coronary angiogram, left ventriculogram, 6-Citizen Of [place] right femoral arterial access made for the device for hemostasis. TECHNIQUES OF PROCEDURE: After obtaining informed consent, the patient was brought to the cardiac catheterization suite in post-absorptive and non-sedated state. The patient was prepped and draped in the usual sterile fashion. A 2% lidocaine was used for infiltration of anesthesia. Using modified Seldinger technique, 6-Citizen [place] sheath was introduced into the right femoral artery. Subsequently, over a J-wire, JR-4 and JL-4 diagnostic catheter was used to engage the left and right coronary systems. Angiograms were obtained in different orthogonal views. Subsequently over J-wire, the pigtail catheter was advanced into the LV and LV gram was obtained in the SANTOS view. CORONARY ANATOMY: The left main large-sized vessel bifurcates into left anterior descending and left circumflex coronary artery. The left anterior descending, large-size vessel gives off two small medium size diagonal branches causing nonobstructive coronary artery disease, and mild 10% to 20% stenosis of left circumflex. Large-size vessel gives off large obtuse marginal branch with no known lesions. The RCA has a proximal hazy lesion about 50% to 55% stenosis, codominant circulation. IMPRESSION: Proximal RCA [id number] 55% to 60% stenosis. RECOMMENDATIONS: 1. Continue aggressive medical management and risk factor modification. 2. Left ventricular ejection fraction estimated to be 50% to 55%. Continue patient management and beta-naty, statins. Able to discontinue, and he will follow up in one to two weeks time for further titration of therapy. The patient has recurrent symptoms of medical therapy and may consider high risk PCI with proximal RCA. Miguel A Beckford MD
[2017-08-08] MEDS ORDERED: Metoprolol Succinate 12.5 mg XL PO SCH (10:00)
== END 2017-08-07 19:45 | disposition home or self-care (01) ==
LOC: C.ER 17:45 → C.9E 21:35 → C.5S 21:53 → OBSVTOIN 08-06 11:16 → INTOOBSV 08-06 11:16
PROVIDERS: ADMIT Internal Medicine; ATTEND Internal Medicine
PROC: 4A023N7 Measurement of Cardiac Sampling and Pressure, Left Heart, Percutaneous Approach (ICD-10-PCS; principal; 2017-08-07)
PROC: B2151ZZ Fluoroscopy of Left Heart using Low Osmolar Contrast (ICD-10-PCS; 2017-08-07)
PROC: B2111ZZ Fluoroscopy of Multiple Coronary Arteries using Low Osmolar Contrast (ICD-10-PCS; 2017-08-07)
DX: I25.10 Atherosclerotic heart disease of native coronary artery without angina pectoris (principal); Z79.899 Other long term (current) drug therapy
CPT/HCPCS: 36415; 71045; 78452; 80053; 80061; 81001; 82550; 82553; 83036; 84443; 84484; 85025; 85027; 85610; 85730; 93005; 93017; 93306; 93452; 99285; A9502; C1760; C1769; C1887; C1893; G0378; J1644; J1650; J2250; J3010; Q9966

== ENCOUNTER 2018-06-26 14:40 | Inpatient (IN) | payer OTHER ==
[2018-06-26 14:40] VITALS: BMI 27.0
[2018-06-26] MEDS ORDERED: Aspirin 325 mg EC Tablets PO STA (15:21)
[2018-06-26 15:37] LABS: BASO # 0.1 K/uL (0.0-0.2); EOS # 0.1 K/uL (0.0-0.7); EOS % 1.6 % (0.0-4.0); HEMOGLOBIN 13.9 g/dL (12.0-18.0); LYMPH # 2.2 K/uL (1.0-4.3); LYMPH % 36.9 % (20.0-40.0); MEAN CELL VOLUME 82.9 fL (80.0-94.0); MEAN CORPUSCULAR HEMOGLOBIN 26.6 pg (27.0-31.0); MEAN CORPUSCULAR HGB CONC 32.1 g/dL (33.0-37.0); MEAN PLATELET VOLUME 9.3 fL (7.2-11.7); MONO # 0.8 K/uL (0.0-0.8); MONO % 13.4 % (0.0-10.0); NEUT # 2.8 K/uL (1.8-7.0); NEUT % 47.1 % (50.0-75.0); RBC 5.22 Mil/uL (4.40-5.90); RED CELL DISTRIBUTION WIDTH 14.1 % (11.5-14.5); WHITE BLOOD COUNT 5.9 K/uL (4.8-10.8)
[2018-06-26 15:51] LABS: ALB/GLOB RATIO 1.4 (1.0-2.1); ALBUMIN 4.4 g/dL (3.5-5.0); ALT/SGPT 28 U/L (21-72); AST/SGOT 22 U/L (17-59); BLOOD UREA NITROGEN 13 mg/dL (9-20); CALCIUM 8.6 mg/dl (8.6-10.4); GFR NON-AFRICAN AMERICAN > 60
[2018-06-26 15:56] LABS: INR 1.2; PROTHROMBIN TIME 13.6 SECONDS (9.7-12.2)
--- NOTE | 2018-06-26 16:07 | C.PDOC ---
History Of Present Illness 47 year old male presents to the ED complaining of substernal chest pain for 5 days. Describes pain as pressure and constant and rated 5/10. Reports he took Aspirin with minor relief. Also notes he had the same pain in August and was hospitalized and received a cardiac catheterization. Patient is speaking in full sentences and denies, cough, sob, nausea, vomiting or any other complaints at this time. Time Seen by Provider: 06/26/18 15:08 Chief Complaint (Nursing): Chest Pain History Per: Patient History/Exam Limitations: no limitations Onset/Duration Of Symptoms: Days (5) Current Symptoms Are (Timing): Still Present Severity: Moderate Pain Scale Rating Of: 5 Quality: Pressure Past Medical History Reviewed: Historical Data, Nursing Documentation, Vital Signs Vital Signs: Last Vital Signs Temp 98.1 F 06/26/18 15:14 Pulse 70 06/26/18 15:41 Resp 18 06/26/18 15:41 BP 124/83 06/26/18 15:41 Pulse Ox 69 L 06/26/18 15:41 Other Surgeries: Hx of surgeries - [facility] Procedures FLUOROSCOPY OF LEFT HEART USING LOW OSMOLAR CONTRAST (08/06/17) FLUOROSCOPY OF MULT COR ART USING L OSM CONTRAST (08/06/17) MEASURE OF CARDIAC SAMPL & PRESSURE, L HEART, PERC APPROACH (08/06/17) Family History: States: No Known Family Hx - Social History Hx Alcohol Use: Yes Hx Substance Use: No - Immunization History Hx Tetanus Toxoid Vaccination: No Hx Influenza Vaccination: No Hx Pneumococcal Vaccination: No Review Of Systems Constitutional: Negative for: Fever, Chills Cardiovascular: Positive for: Chest Pain. Negative for: Edema, Light Headedness Respiratory: Positive for: Cough. Negative for: Shortness of Breath Gastrointestinal: Positive for: Nausea. Negative for: Vomiting, Diarrhea Genitourinary: Negative for: Dysuria, Hematuria Musculoskeletal: Negative for: Back Pain, Leg Pain Neurological: Negative for: Dizziness Physical Exam - Physical Exam Additional Physical Exam Comments: General- Well appearing, Non-toxic, No acute distress Head- Normocephalic, Atraumatic Eyes- PERRL, EOMI, other (Conjunctiva clear) Mucosa- Moist Chest- Symmetrical. Substernal tenderness Cardiovascular: Rhythm Regular, No murmur, (Normal S1, S2) Resp- no wheezing, rales, or rhonchi, Lungs CTA bilaterally Abd- Soft. Nontender. No distension. No guarding, no rebound. Ext: Bilateral (atraumatic, normal color and temperature, no cyanosis or edema) DP pulses 2+ Neuro- Oriented x3, GCS 15, CN 2-12 intact, normal sensation, normal motor (5/5 muscle strength) Gait: steady ED Course And Treatment - Laboratory Results Result Diagrams: 06/26/18 15:32 06/26/18 15:32 ECG: Interpreted By Me, Viewed By Me ECG Interpretation: No Acute Changes Interpretation Of ECG: Normal intervals. Normal axis. No ST elevations. Rate From EC O2 Sat by Pulse Oximetry: 69 (RA) Pulse Ox Interpretation: Abnormal - Other Rad CXR X-Ray: Viewed By Me, Read By Radiologist Interpretation: Accession No. : [id number]. Patient Name / ID : MOO MONROY / [id number]. Exam Date : 06/26/2018 15:35:55 ( Approved ). Study Comment : Sex / Age : M / 47Y. Creator : raoul deluca. Dictator : Raoul Dove MD. White Hat Hacker : Slabbing Machine Operator : Raoul Dove MD. Approver2 : Report Date : 06/26/2018 15:43:24. My Comment : . Date of service: 06/26/2018. HISTORY: chest pain. COMPARISON: Frontal chest radiograph 08/03/2017. FINDINGS: LUNGS: No active pulmonary disease. PLEURA: No significant pleural effusion identified, no pneumothorax apparent. CARDIOVASCULAR: No aortic atherosclerotic calcification present. Normal cardiac size. No pulmonary vascular congestion. OSSEOUS STRUCTURES: No significant abnormalities. VISUALIZED UPPER ABDOMEN: Normal. OTHER FINDINGS: None. IMPRESSION: No interval acute cardiopulmonary disease appreciated. Medical Decision Making Medical Decision Making: Plan - EKG - CXR - Aspirin 325mg PO - Nitroglycerin 0.4mg SL - Bloodwork As per old records, Patient received a cardiac catheterization status post positive stress test. Patient has a 50-55% lesion on the RCA. Aggressive medical treatment was suggested. 1635 Spoke with Hospitalist, Dr. Talamantes in regards to admission. Stated that Dr. Wolfe admits to Medicine electronic communications technician. 1655 Pt re-eval: States feeling much better status post nitroglycerin administration. Denies any cp, sob, n/v or any other complaints. Discussed with patient about admission due to patient's symptoms and history. Agreeable with plan. 1700 Spoke with Medicine electronic communications technician, Dr. Darby. Accepts patient under service. Requests consult with Psychiatric Aides Teacher, Dr. Beckford. Disposition - Disposition Forms: [facility] (Estonian) - Scribe Statement The provider has reviewed the documentation as recorded by the Scribe Cecelia Beckwith All medical record entries made by the Scribe were at my direction and personally dictated by me. I have reviewed the chart and agree that the record accurately reflects my personal performance of the history, physical exam, medical decision making, and the department course for this patient. I have also personally directed, reviewed, and agree with the discharge instructions and disposition.
--- NOTE | 2018-06-26 17:15 | RAD ---
Date of service: 06/26/2018 HISTORY: chest pain COMPARISON: Frontal chest radiograph 08/03/2017. FINDINGS: LUNGS: No active pulmonary disease. PLEURA: No significant pleural effusion identified, no pneumothorax apparent. CARDIOVASCULAR: No aortic atherosclerotic calcification present. Normal cardiac size. No pulmonary vascular congestion. OSSEOUS STRUCTURES: No significant abnormalities. VISUALIZED UPPER ABDOMEN: Normal. OTHER FINDINGS: None. IMPRESSION: No interval acute cardiopulmonary disease appreciated.
--- NOTE | 2018-06-26 18:56 | CP.PCM.CON ---
History of Present Illness - History of Present Illness History of Present Illness: Consultation for evaluation of chest pain Porter is a 47-year-old male who is presenting with complaints of substernal chest pain ongoing for 5 days prior to presentation describes a pressure-like sensation constant in nature took aspirin with minimal relief. I had evaluated him back in August 2017 at which time he had undergone a cardiac catheterization which showed nonobstructive disease with vasospasm of the RCA. He denies any associated shortness of breath palpitations dizziness syncope or presyncope. His vitals on presentation normotensive heart rate of 70 respirations 18 with normal pulse ox. Physical examination vital signs stable General alert oriented x3 no apparent distress HEENT anicteric pupils equal reactive light extract movements intact neck Neck supple no jugular venous distention. Respirations clear to auscultation bilaterally no no wheezes rhonchi rales. Abdomen soft nontender nondistended extremity no. Heart regular rate and normal S1 no signs of murmurs gallops rubs. Extremities no clubbing cyanosis edema. Neuro oriented x3 cranial nerves II thousand 9 normal sensation motor.. Gait steady. Laboratory data show sodium 141 potassium 3.7 chloride 103 bicarb 20 and BUN 13 creatinine 0.8. Hemoglobin was 13.9 white count 5.9 with platelet count of 197. Chest x-ray done no acute cardiopulmonary process was noted on the chest x-ray. Review of Systems - Review of Systems Systems not reviewed;Unavailable: Acuity of Condition - Constitutional Constitutional: As Per HPI - EENT Eyes: As Per HPI Ears: As Per HPI Nose/Mouth/Throat: As Per HPI - Cardiovascular Cardiovascular: As Per HPI - Respiratory Respiratory: As Per HPI - Gastrointestinal Gastrointestinal: As Per HPI - Genitourinary Genitourinary: As Per HPI - Reproductive: Male Reproductive:Male: As Per HPI - Musculoskeletal Musculoskeletal: As Per HPI - Integumentary Integumentary: As Per HPI - Neurological Neurological: As Per HPI - Psychiatric Psychiatric: As Per HPI - Hematologic/Lymphatic Hematologic: As Per HPI Past Patient History - Infectious Disease Hx of Infectious Diseases: None - Past Social History Smoking Status: Never Smoked - CARDIAC Other/Comment: htn - MUSCULOSKELETAL/RHEUMATOLOGICAL Hx Falls: No - PSYCHIATRIC Hx Substance Use: No - SURGICAL HISTORY Hx Surgeries: Yes Hx Orthopedic Surgery: Yes - ANESTHESIA Hx Anesthesia: Yes Hx Anesthesia Reactions: No Hx Malignant Hyperthermia: No Meds Allergies/Adverse Reactions: Allergies Allergy/AdvReac Type Severity Reaction Status Date / Time No Known Allergies Allergy Verified 08/03/17 17:51 - Medications Medications: Current Medications Nitroglycerin (Nitrostat Sl Tab) 0.4 mg SL Q5M PRN PRN Reason: chest pain Last Admin: 06/26/18 15:41 Dose: 0.4 mg Physical Exam - Constitutional Appears: Well - Head Exam Head Exam: ATRAUMATIC, NORMAL INSPECTION, NORMOCEPHALIC - Eye Exam Eye Exam: EOMI, Normal appearance, PERRL Pupil Exam: NORMAL ACCOMODATION, PERRL - ENT Exam ENT Exam: Mucous Membranes Moist, Normal Exam - Neck Exam Neck exam: Positive for: Normal Inspection - Respiratory Exam Respiratory Exam: Clear to Auscultation Bilateral, NORMAL BREATHING PATTERN - Cardiovascular Exam Cardiovascular Exam: REGULAR RHYTHM - GI/Abdominal Exam GI & Abdominal Exam: Normal Bowel Sounds, Soft. absent: Tenderness - Extremities Exam Extremities exam: Positive for: normal inspection - Back Exam Back exam: NORMAL INSPECTION - Neurological Exam Neurological exam: Alert, CN II-XII Intact, Normal Gait, Oriented x3, Reflexes Normal - Psychiatric Exam Psychiatric exam: Normal Affect, Normal Mood - Skin Skin Exam: Dry, Intact, Normal Color, Warm Results - Vital Signs Recent Vital Signs: Last Vital Signs Temp 98.7 F 06/26/18 18:02 Pulse 57 L 06/26/18 18:02 Resp 16 06/26/18 18:02 BP 112/76 06/26/18 18:02 Pulse Ox 69 L 06/26/18 18:16 - Labs Result Diagrams: 06/26/18 15:32 06/26/18 15:32 Labs: Laboratory Results - last 24 hr 06/26/18 06/26/18 06/26/18 15:32 15:32 15:38 WBC 5.9 RBC 5.22 Hgb 13.9 Hct 43.3 MCV 82.9 D MCH 26.6 L MCHC 32.1 L RDW 14.1 Plt Count 197 MPV 9.3 Neut % (Auto) 47.1 L Lymph % (Auto) 36.9 [place] % (Auto) 13.4 H Eos % (Auto) 1.6 Baso % (Auto) 1.0 Neut # (Auto) 2.8 Lymph # (Auto) 2.2 [place] # (Auto) 0.8 Eos # (Auto) 0.1 Baso # (Auto) 0.1 PT 13.6 H INR 1.2 APTT 37 H Sodium 141 Potassium 3.7 Chloride 103 Carbon Dioxide 29 Anion Gap 12 BUN 13 Creatinine 0.8 Est GFR ( Amer) > 60 Est GFR (Non-Af Amer) > 60 Random Glucose 92 Calcium 8.6 Total Bilirubin 0.6 AST 22 ALT 28 Alkaline Phosphatase 55 Troponin I < 0.0120 Total Protein 7.6 Albumin 4.4 Globulin 3.2 Albumin/Globulin Ratio 1.4 Assessment & Plan (1) Chest pain Assessment and Plan: Etiology of chest pain question secondary to underlying gastroesophageal reflux disease. I would recommend GI evaluation for peptic ulcer disease recent cath shows nonobstructive coronary artery disease unlikely to be of cardiac in the region. Status: Acute
[2018-06-27 01:25] LABS: SQUAMOUS EPITHIAL < 1 /hpf (0-5); URINE BILIRUBIN NEGATIVE (NEGATIVE); URINE BLOOD NEGATIVE (NEGATIVE); URINE CLARITY Clear (Clear); URINE COLOR Yellow (YELLOW); URINE GLUCOSE (UA) NORMAL (Normal); URINE LEUKOCYTE ESTERASE NEG Leu/uL (Negative); URINE PROTEIN NEGATIVE (NEGATIVE)
[2018-06-27 01:50] LABS: BARBITURATES, UR NEGATIVE (NEGATIVE); BENZODIAZEPINES, UR NEGATIVE (NEGATIVE); OPIATES, UR NEGATIVE (NEGATIVE); PHENCYCLIDINE, UR NEGATIVE (NEGATIVE)
[2018-06-27 04:56] LABS: BASO # 0.1 K/uL (0.0-0.2); EOS # 0.1 K/uL (0.0-0.7); EOS % 1.3 % (0.0-4.0); HEMOGLOBIN 13.9 g/dL (12.0-18.0); LYMPH # 2.2 K/uL (1.0-4.3); LYMPH % 43.6 % (20.0-40.0); MEAN CORPUSCULAR HEMOGLOBIN 26.7 pg (27.0-31.0); MEAN CORPUSCULAR HGB CONC 32.5 g/dL (33.0-37.0); MEAN PLATELET VOLUME 9.1 fL (7.2-11.7); MONO # 0.5 K/uL (0.0-0.8); MONO % 10.6 % (0.0-10.0); NEUT # 2.2 K/uL (1.8-7.0); NEUT % 43.5 % (50.0-75.0); NRBC % 0.1 % (0.0-2.0); RBC 5.19 Mil/uL (4.40-5.90); RED CELL DISTRIBUTION WIDTH 13.8 % (11.5-14.5)
[2018-06-27 05:07] LABS: ALB/GLOB RATIO 1.4 (1.0-2.1); ALBUMIN 4.2 g/dL (3.5-5.0); ALT/SGPT 29 U/L (21-72); AST/SGOT 18 U/L (17-59); BLOOD UREA NITROGEN 13 mg/dL (9-20); CALCIUM 8.7 mg/dl (8.6-10.4); GFR NON-AFRICAN AMERICAN > 60; HDL CHOLESTEROL 34 mg/dL (30-70)
[2018-06-27 05:18] LABS: LDL CHOLESTEROL 79 mg/dL (0-129)
[2018-06-27 08:39] VITALS: O2SAT 97
[2018-06-27] MEDS ORDERED: Metoprolol Succinate 12.5 mg XL Tab PO SCH (10:00)
--- NOTE | 2018-06-27 10:31 | CP.PCM.PN ---
Subjective - Date & Time of Evaluation Date of Evaluation: 06/27/18 Time of Evaluation: 10:30 Objective - Vital Signs/Intake and Output Vital Signs (last 24 hours): Temp Pulse Resp BP Pulse Ox 98.2 F 63 20 110/67 97 06/27/18 08:38 06/27/18 09:25 06/27/18 08:38 06/27/18 09:25 06/27/18 08:38 Intake and Output: 06/27/18 06/27/18 06:59 18:59 Intake Total 120 Balance 120 - Medications Medications: Current Medications Aspirin (Aspirin Chewable) 81 mg PO DAILY [facility] Last Admin: 06/27/18 09:30 Dose: 81 mg Heparin Sodium (Porcine) (Heparin) 5,000 units SC Q12 [facility] Last Admin: 06/27/18 09:24 Dose: 5,000 units Metoprolol Succinate (Toprol Xl) 12.5 mg PO DAILY [facility] Last Admin: 06/27/18 09:24 Dose: 12.5 mg Nitroglycerin (Nitrostat Sl Tab) 0.4 mg SL Q5M PRN PRN Reason: chest pain Last Admin: 06/26/18 15:41 Dose: 0.4 mg Pantoprazole Sodium (Protonix Inj) 40 mg IVP DAILY [facility] Last Admin: 06/27/18 09:24 Dose: 40 mg Rosuvastatin Calcium (Crestor) 10 mg PO HS [facility] Last Admin: 06/26/18 22:20 Dose: 10 mg - Labs Labs: 06/27/18 04:51 06/27/18 04:51 PT 13.6 SECONDS (9.7-12.2) H 06/26/18 15:38 INR 1.2 06/26/18 15:38 APTT 37 SECONDS (21-34) H 06/26/18 15:38
--- NOTE | 2018-06-27 14:11 | CP.PCM.CON ---
<Kevin Myers - Last Filed: 06/27/18 14:45> History of Present Illness - History of Present Illness History of Present Illness: PGY-4 GI Fellow Consult Note Pt is a 47 yo BM with CAD (mild RCA disease, no stenting, on medical Rx alone), H/o H pylori s/p trt (unknown if eradication) presenting with complaints of chest pain. He states since Monday he has had constant, midsternal, non- radiating, pressure/burning sensation that is worse post-prandially. He took ASA and nitro with minor relief. He was given a pantoprazole with relief of his symptoms. He states that the felt sensation of food "coming back up" in his mid sternal area but states that it resolved post-PPI initiation. He states that he had an EGD+CSPY a few years ago at [facility] which reveal "inflammation" and a few p olyps, respectively. He denied any weight loss, dysphagia, odynophagia, melena, hematochezia, N/V or abd pain. 12 point ROS negative other than stated above MHx: See above SurgHx: Heart cath Aug 2017, foot surgery Meds: reviewed in chart FamHx: Denied GI/CRC SocHx: Rare EtOH use, denied Tob/Illicits All: NKDA Past Patient History - Infectious Disease Hx of Infectious Diseases: None - Past Medical History & Family History Past Medical History?: Yes - Past Social History Smoking Status: Never Smoked - CARDIAC Hx Cardiac Disorders: Yes Other/Comment: htn - MUSCULOSKELETAL/RHEUMATOLOGICAL Hx Musculoskeletal Disorders: No Hx Falls: No - PSYCHIATRIC Hx Psychophysiologic Disorder: No Hx Substance Use: No - SURGICAL HISTORY Hx Surgeries: Yes Hx Orthopedic Surgery: Yes - ANESTHESIA Hx Anesthesia: Yes Hx Anesthesia Reactions: No Hx Malignant Hyperthermia: No Meds Allergies/Adverse Reactions: Allergies Allergy/AdvReac Type Severity Reaction Status Date / Time No Known Allergies Allergy Verified 08/03/17 17:51 - Medications Medications: Current Medications Aspirin (Aspirin Chewable) 81 mg PO DAILY [facility] Last Admin: 06/27/18 09:30 Dose: 81 mg Heparin Sodium (Porcine) (Heparin) 5,000 units SC Q12 [facility] Last Admin: 06/27/18 09:24 Dose: 5,000 units Metoprolol Succinate (Toprol Xl) 12.5 mg PO DAILY [facility] Last Admin: 06/27/18 09:24 Dose: 12.5 mg Nitroglycerin (Nitrostat Sl Tab) 0.4 mg SL Q5M PRN PRN Reason: chest pain Last Admin: 06/26/18 15:41 Dose: 0.4 mg Pantoprazole Sodium (Protonix Inj) 40 mg IVP DAILY [facility] Last Admin: 06/27/18 09:24 Dose: 40 mg Rosuvastatin Calcium (Crestor) 10 mg PO HS [facility] Last Admin: 06/26/18 22:20 Dose: 10 mg Physical Exam - Constitutional Appears: Well, No Acute Distress - Head Exam Head Exam: ATRAUMATIC, NORMAL INSPECTION - Eye Exam Eye Exam: EOMI. absent: Scleral icterus - ENT Exam ENT Exam: Mucous Membranes Moist. absent: Mucous Membranes Dry - Respiratory Exam Respiratory Exam: Clear to Auscultation Bilateral, NORMAL BREATHING PATTERN. absent: Accessory Muscle Use, Wheezes - Cardiovascular Exam Cardiovascular Exam: REGULAR RHYTHM, RRR - GI/Abdominal Exam GI & Abdominal Exam: Normal Bowel Sounds, Soft. absent: Bruit, Diminished Bowel Sounds, Distended, Firm, Guarding, Hernia, Mass, Organomegaly, Pulsatile Mass, Rebound, Rigid, Tenderness - Rectal Exam Rectal Exam: Deferred - Extremities Exam Extremities exam: Positive for: normal inspection. Negative for: pedal edema - Neurological Exam Neurological exam: Alert, CN II-XII Intact - Psychiatric Exam Psychiatric exam: Normal Affect, Normal Mood - Skin Skin Exam: Normal Color, Warm Results - Vital Signs Recent Vital Signs: Last Vital Signs Temp 98.2 F 06/27/18 08:38 Pulse 63 06/27/18 09:25 Resp 20 06/27/18 08:38 BP 110/67 06/27/18 09:25 Pulse Ox 97 06/27/18 08:38 - Labs Result Diagrams: 06/27/18 04:51 06/27/18 04:51 Labs: Laboratory Results - last 24 hr 06/26/18 06/26/18 06/26/18 15:32 15:32 15:38 WBC 5.9 RBC 5.22 Hgb 13.9 Hct 43.3 MCV 82.9 D MCH 26.6 L MCHC 32.1 L RDW 14.1 Plt Count 197 MPV 9.3 Neut % (Auto) 47.1 L Lymph % (Auto) 36.9 [place] % (Auto) 13.4 H Eos % (Auto) 1.6 Baso % (Auto) 1.0 Neut # (Auto) 2.8 Lymph # (Auto) 2.2 [place] # (Auto) 0.8 Eos # (Auto) 0.1 Baso # (Auto) 0.1 PT 13.6 H INR 1.2 APTT 37 H Sodium 141 Potassium 3.7 Chloride 103 Carbon Dioxide 29 Anion Gap 12 BUN 13 Creatinine 0.8 Est GFR ( Amer) > 60 Est GFR (Non-Af Amer) > 60 Random Glucose 92 Hemoglobin A1c Calcium 8.6 Phosphorus Magnesium Total Bilirubin 0.6 AST 22 ALT 28 Alkaline Phosphatase 55 Troponin I < 0.0120 Total Protein 7.6 Albumin 4.4 Globulin 3.2 Albumin/Globulin Ratio 1.4 Triglycerides Cholesterol LDL Cholesterol Direct HDL Cholesterol TSH 3rd Generation Urine Color Urine Clarity Urine pH Ur Specific [place] Urine Protein Urine Glucose (UA) Urine Ketones Urine Blood Urine Nitrate Urine Bilirubin Urine Urobilinogen Ur Leukocyte Esterase Urine WBC (Auto) Urine RBC (Auto) Ur Squamous Epith Cells Urine Opiates Screen Urine Methadone Screen Ur Barbiturates Screen Ur Phencyclidine Scrn Ur Amphetamines Screen U Benzodiazepines Scrn U Oth Cocaine Metabols U Cannabinoids Screen 06/26/18 06/27/18 06/27/18 23:04 00:45 00:45 WBC RBC Hgb Hct MCV MCH MCHC RDW Plt Count MPV Neut % (Auto) Lymph % (Auto) [place] % (Auto) Eos % (Auto) Baso % (Auto) Neut # (Auto) Lymph # (Auto) [place] # (Auto) Eos # (Auto) Baso # (Auto) PT INR APTT Sodium Potassium Chloride Carbon Dioxide Anion Gap BUN Creatinine Est GFR ( Amer) Est GFR (Non-Af Amer) Random Glucose Hemoglobin A1c Calcium Phosphorus Magnesium Total Bilirubin AST ALT Alkaline Phosphatase Troponin I < 0.0120 Total Protein Albumin Globulin Albumin/Globulin Ratio Triglycerides Cholesterol LDL Cholesterol Direct HDL Cholesterol TSH 3rd Generation Urine Color Yellow Urine Clarity Clear Urine pH 7.0 Ur Specific [place] 1.019 Urine Protein Negative Urine Glucose (UA) Normal Urine Ketones Negative Urine Blood Negative Urine Nitrate Negative Urine Bilirubin Negative Urine Urobilinogen 4.0 Ur Leukocyte Esterase Neg Urine WBC (Auto) 1 Urine RBC (Auto) 1 Ur Squamous Epith Cells < 1 Urine Opiates Screen Negative Urine Methadone Screen Negative Ur Barbiturates Screen Negative Ur Phencyclidine Scrn Negative Ur Amphetamines Screen Negative U Benzodiazepines Scrn Negative U Oth Cocaine Metabols Negative U Cannabinoids Screen Negative 06/27/18 06/27/18 06/27/18 04:51 04:51 04:51 WBC 5.0 RBC 5.19 Hgb 13.9 Hct 42.6 MCV 82.0 MCH 26.7 L MCHC 32.5 L RDW 13.8 Plt Count 175 MPV 9.1 Neut % (Auto) 43.5 L Lymph % (Auto) 43.6 H [place] % (Auto) 10.6 H Eos % (Auto) 1.3 Baso % (Auto) 1.0 Neut # (Auto) 2.2 Lymph # (Auto) 2.2 [place] # (Auto) 0.5 Eos # (Auto) 0.1 Baso # (Auto) 0.1 PT INR APTT Sodium 138 Potassium 4.0 Chloride 105 Carbon Dioxide 26 Anion Gap 11 BUN 13 Creatinine 0.8 Est GFR ( Amer) > 60 Est GFR (Non-Af Amer) > 60 Random Glucose 95 Hemoglobin A1c 5.9 Calcium 8.7 Phosphorus 4.4 Magnesium 1.9 Total Bilirubin 0.5 AST 18 ALT 29 Alkaline Phosphatase 57 Troponin I < 0.0120 Total Protein 7.2 Albumin 4.2 Globulin 3.0 Albumin/Globulin Ratio 1.4 Triglycerides 78 Cholesterol 120 LDL Cholesterol Direct 79 HDL Cholesterol 34 TSH 3rd Generation 0.49 Urine Color Urine Clarity Urine pH Ur Specific [place] Urine Protein Urine Glucose (UA) Urine Ketones Urine Blood Urine Nitrate Urine Bilirubin Urine Urobilinogen Ur Leukocyte Esterase Urine WBC (Auto) Urine RBC (Auto) Ur Squamous Epith Cells Urine Opiates Screen Urine Methadone Screen Ur Barbiturates Screen Ur Phencyclidine Scrn Ur Amphetamines Screen U Benzodiazepines Scrn U Oth Cocaine Metabols U Cannabinoids Screen Assessment & Plan - Assessment and Plan (Free Text) Assessment: 47 yo BM with h/o CAD, GERD, colon polyps presenting with chest pain. # Atypical Chest Pain: Though pt has h/o CAD, nature of symptoms point to GI cause likely GERD, especially given patient's h/o EGD in the past with "inflam mation." # H/o H pylori Infection: pt reports treatment, but unknown if eradication confirmed # CRC Screen: Pt states CSPY few years ago at [facility] with polyps removed. Plan: - Recommend 2 week course of Pantoprazole 40 mg QD - F/u with Dr. Castrejon in 2-4 weeks to reassess further medication, possible H pylori testing, EGD, etc. Pt seen and examined with Dr. Castrejon; please see attestation for further recs/changes. Kevin Myers, PGY-4 <Johnny Castrejon - Last Filed: 06/27/18 15:16> Meds - Medications Medications: Current Medications Aspirin (Aspirin Chewable) 81 mg PO DAILY [facility] Last Admin: 06/27/18 09:30 Dose: 81 mg Heparin Sodium (Porcine) (Heparin) 5,000 units SC Q12 [facility] Last Admin: 06/27/18 09:24 Dose: 5,000 units Metoprolol Succinate (Toprol Xl) 12.5 mg PO DAILY [facility] Last Admin: 06/27/18 09:24 Dose: 12.5 mg Nitroglycerin (Nitrostat Sl Tab) 0.4 mg SL Q5M PRN PRN Reason: chest pain Last Admin: 06/26/18 15:41 Dose: 0.4 mg Pantoprazole Sodium (Protonix Inj) 40 mg IVP DAILY [facility] Last Admin: 06/27/18 09:24 Dose: 40 mg Rosuvastatin Calcium (Crestor) 10 mg PO HS [facility] Last Admin: 06/26/18 22:20 Dose: 10 mg Results - Vital Signs Recent Vital Signs: Last Vital Signs Temp 98.2 F 06/27/18 08:38 Pulse 63 06/27/18 09:25 Resp 20 06/27/18 08:38 BP 110/67 06/27/18 09:25 Pulse Ox 97 06/27/18 08:38 - Labs Result Diagrams: 06/27/18 04:51 06/27/18 04:51 Labs: Laboratory Results - last 24 hr 06/26/18 06/26/18 06/26/18 15:32 15:32 15:38 WBC 5.9 RBC 5.22 Hgb 13.9 Hct 43.3 MCV 82.9 D MCH 26.6 L MCHC 32.1 L RDW 14.1 Plt Count 197 MPV 9.3 Neut % (Auto) 47.1 L Lymph % (Auto) 36.9 [place] % (Auto) 13.4 H Eos % (Auto) 1.6 Baso % (Auto) 1.0 Neut # (Auto) 2.8 Lymph # (Auto) 2.2 [place] # (Auto) 0.8 Eos # (Auto) 0.1 Baso # (Auto) 0.1 PT 13.6 H INR 1.2 APTT 37 H Sodium 141 Potassium 3.7 Chloride 103 Carbon Dioxide 29 Anion Gap 12 BUN 13 Creatinine 0.8 Est GFR ( Amer) > 60 Est GFR (Non-Af Amer) > 60 Random Glucose 92 Hemoglobin A1c Calcium 8.6 Phosphorus Magnesium Total Bilirubin 0.6 AST 22 ALT 28 Alkaline Phosphatase 55 Troponin I < 0.0120 Total Protein 7.6 Albumin 4.4 Globulin 3.2 Albumin/Globulin Ratio 1.4 Triglycerides Cholesterol LDL Cholesterol Direct HDL Cholesterol TSH 3rd Generation Urine Color Urine Clarity Urine pH Ur Specific [place] Urine Protein Urine Glucose (UA) Urine Ketones Urine Blood Urine Nitrate Urine Bilirubin Urine Urobilinogen Ur Leukocyte Esterase Urine WBC (Auto) Urine RBC (Auto) Ur Squamous Epith Cells Urine Opiates Screen Urine Methadone Screen Ur Barbiturates Screen Ur Phencyclidine Scrn Ur Amphetamines Screen U Benzodiazepines Scrn U Oth Cocaine Metabols U Cannabinoids Screen 06/26/18 06/27/18 06/27/18 23:04 00:45 00:45 WBC RBC Hgb Hct MCV MCH MCHC RDW Plt Count MPV Neut % (Auto) Lymph % (Auto) [place] % (Auto) Eos % (Auto) Baso % (Auto) Neut # (Auto) Lymph # (Auto) [place] # (Auto) Eos # (Auto) Baso # (Auto) PT INR APTT Sodium Potassium Chloride Carbon Dioxide Anion Gap BUN Creatinine Est GFR ( Amer) Est GFR (Non-Af Amer) Random Glucose Hemoglobin A1c Calcium Phosphorus Magnesium Total Bilirubin AST ALT Alkaline Phosphatase Troponin I < 0.0120 Total Protein Albumin Globulin Albumin/Globulin Ratio Triglycerides Cholesterol LDL Cholesterol Direct HDL Cholesterol TSH 3rd Generation Urine Color Yellow Urine Clarity Clear Urine pH 7.0 Ur Specific [place] 1.019 Urine Protein Negative Urine Glucose (UA) Normal Urine Ketones Negative Urine Blood Negative Urine Nitrate Negative Urine Bilirubin Negative Urine Urobilinogen 4.0 Ur Leukocyte Esterase Neg Urine WBC (Auto) 1 Urine RBC (Auto) 1 Ur Squamous Epith Cells < 1 Urine Opiates Screen Negative Urine Methadone Screen Negative Ur Barbiturates Screen Negative Ur Phencyclidine Scrn Negative Ur Amphetamines Screen Negative U Benzodiazepines Scrn Negative U Oth Cocaine Metabols Negative U Cannabinoids Screen Negative 06/27/18 06/27/18 06/27/18 04:51 04:51 04:51 WBC 5.0 RBC 5.19 Hgb 13.9 Hct 42.6 MCV 82.0 MCH 26.7 L MCHC 32.5 L RDW 13.8 Plt Count 175 MPV 9.1 Neut % (Auto) 43.5 L Lymph % (Auto) 43.6 H [place] % (Auto) 10.6 H Eos % (Auto) 1.3 Baso % (Auto) 1.0 Neut # (Auto) 2.2 Lymph # (Auto) 2.2 [place] # (Auto) 0.5 Eos # (Auto) 0.1 Baso # (Auto) 0.1 PT INR APTT Sodium 138 Potassium 4.0 Chloride 105 Carbon Dioxide 26 Anion Gap 11 BUN 13 Creatinine 0.8 Est GFR ( Amer) > 60 Est GFR (Non-Af Amer) > 60 Random Glucose 95 Hemoglobin A1c 5.9 Calcium 8.7 Phosphorus 4.4 Magnesium 1.9 Total Bilirubin 0.5 AST 18 ALT 29 Alkaline Phosphatase 57 Troponin I < 0.0120 Total Protein 7.2 Albumin 4.2 Globulin 3.0 Albumin/Globulin Ratio 1.4 Triglycerides 78 Cholesterol 120 LDL Cholesterol Direct 79 HDL Cholesterol 34 TSH 3rd Generation 0.49 Urine Color Urine Clarity Urine pH Ur Specific [place] Urine Protein Urine Glucose (UA) Urine Ketones Urine Blood Urine Nitrate Urine Bilirubin Urine Urobilinogen Ur Leukocyte Esterase Urine WBC (Auto) Urine RBC (Auto) Ur Squamous Epith Cells Urine Opiates Screen Urine Methadone Screen Ur Barbiturates Screen Ur Phencyclidine Scrn Ur Amphetamines Screen U Benzodiazepines Scrn U Oth Cocaine Metabols U Cannabinoids Screen Attending/Attestation - Attestation I have personally seen and examined this patient.: Yes I have fully participated in the care of the patient.: Yes I have reviewed all pertinent clinical information: Yes Notes (Text): 06/27/18 15:10 I have seen and examined patient with GI fellow. Agree with above documentation with the following additions. In brief, this is a 47 year old male with history of CAD who presents to hospital with complaint of chest pain. He describes constant mid sternal pressure like sensation for the past 4 days that seems to be worse following meal consumption. He was evaluated by cardiology who does not believe recent symptoms are cardiac related. He endorses intermittent sour sensation in his mouth and worsening of symptoms when lying supine. He denies nausea, vomiting, fever/chills, weight loss, rectal bleeding, or change in bowel habits. He had an EGD/colonoscopy over 5 years ago which showed stomach "ba cterial" infection s/p treatment and a few polyps as per patient. CAD Chest pain - atypical - prior cardiac cath showed non-obstructive disease - Diet as tolerated - Clinical symptoms suggestive of GERD without associated alarm or worrisome features - Would continue with PPI therapy for time being - Counseled patient on importance of dietary modification and avoidance of typical food "triggers" - Patient would benefit from additional outpatient evaluation with consideration of repeat endoscopy. No planned GI intervention at this time, will sign off case. Please reconsult as necessary, thank you.
[2018-06-27 16:39] VITALS: BP 99/63; PULSE 60; RESP 18; TEMP 97.9
--- NOTE | 2018-06-27 19:37 | CARD ---
APPROVED REPORT Date of service: 06/26/2018 EKG Measurement Heart [id number] <Conclusion> Normal sinus rhythm Minimal voltage criteria for LVH, may be normal variant Borderline ECG
--- NOTE | 2018-06-27 20:12 | CARD ---
APPROVED REPORT Date of service: 06/27/2018 EXAM: Two-dimensional and M-mode echocardiogram with Doppler and color Doppler. INDICATION Chest Pain 2D DIMENSIONS IVSd1.0 (0.7-1.1cm)LVDd4.3 (3.9-5.9cm) PWd1.0 (0.7-1.1cm)LA [id number] (18-58mL) LVDs3.0 (2.5-4.0cm)FS (%) 29.5 % LVEF (%)60.0 (>50%)LVEF (Luna's)69.80 % IVC0.00 cm M-Mode DIMENSIONS RVDd1.86 (2.1-3.2cm)Left Atrium (MM)3.34 (2.5-4.0cm) IVSd1.11 (0.7-1.1cm)Aortic Root3.08 (2.2-3.7cm) LVDd4.58 (4.0-5.6cm)Aortic Cusp Exc.2.32 (1.5-2.0cm) PWd1.02 (0.7-1.1cm)FS (%) 40 % LVDs2.75 (2.0-3.8cm)LVEF (%)71 (>50%) Mitral Valve MV E Qhqrawmz34.2cm/sMV A Fdlfyjqu40.4cm/sE/A ratio0.8 TDI Lateral E' Peak V11.06cm/sMedial E' Peak V7.32cm/sE/Lateral E'4.6 E/Medial E'7.0 Tricuspid Valve TR Peak [id number]/sTR Peak [id number] LEFT VENTRICLE The left ventricle is normal size. There is normal left ventricular wall thickness. The left ventricular function is normal. The left ventricular ejection fraction is within the normal range. 70% No regional wall motion abnormalities noted. The left ventricular diastolic function is normal. No left ventricle thrombus noted on this study. There is no ventricular septal defect visualized. There is no left ventricular aneurysm. There is no mass noted in the left ventricle. RIGHT VENTRICLE The right ventricle is normal size. There is normal right ventricular wall thickness. The right ventricular systolic function is normal. ATRIA The left atrium size is normal. The right atrium size is normal. The interatrial septum is intact with no evidence for an atrial septal defect. AORTIC VALVE The aortic valve is normal in structure and function. No aortic regurgitation is present. There is no aortic valvular stenosis. There is no aortic valvular vegetation. MITRAL VALVE The mitral valve is normal in structure and function. There is no evidence of mitral valve prolapse. There is no mitral valve stenosis. There is no mitral valve regurgitation noted. TRICUSPID VALVE The tricuspid valve is normal in structure and function. There is no tricuspid valve regurgitation noted. There is no tricuspid valve prolapse or vegetation. There is no tricuspid valve stenosis. PULMONIC VALVE The pulmonary valve is normal in structure and function. There is no pulmonic valvular regurgitation. There is no pulmonic valvular stenosis. GREAT VESSELS The aortic root is normal in size. The ascending aorta is normal in size. The pulmonary artery is normal. The IVC is normal in size and collapses >50% with inspiration. PERICARDIAL EFFUSION The pericardium appears normal. There is no pleural effusion. <Conclusion> Normal Study
--- NOTE | 2018-06-28 00:01 | HP ---
CHIEF COMPLAINT: Retrosternal pain for the past five days. HISTORY OF PRESENT ILLNESS: Mr. Vergara is a 47-year-old male with past medical history of hypertension, hyperlipidemia who was diagnosed with nonobstructive coronary artery disease in 08/2017 who had undergone stress test which was positive and underwent cardiac catheterization on 08/07/2017 which was consistent with proximal RCA, moderate to severe, 55% to 60% stenosis with ejection fraction of 50% to 55% who has been following up with Dr. Wolfe as a primary care physician and Dr. Beckford as a Mathematical Engineering Technician who had undergone colonoscopy and endoscopy about two years ago for the symptoms of gastritis, was found to have colonic polyp, status post resection. As per the patient, his urea breath test was positive, and he was given treatment for Helicobacter pylori for 10 days and has been following up with sewage reticulation drafting officer as outpatient, came into the emergency room with complaints of substernal chest pain which is pressure like, nonradiating. For the past 5 days, pain is pressure like, about 7/10, had difficulty with swallowing, feeling like a lump passing through the retrosternal region when he was having his meal. The pain was constant. Denied any associated symptoms of headache, dizziness, diaphoresis, shortness of breath, or any dizziness. Denied any other palpitations. His pain got better after he came to the emergency room. He also claims that he started having cold last Monday for which he has been taking ibuprofen. Since then, he has been having these symptoms. When I examined, patient denied any headache or dizziness. Denied any chest pain, shortness of breath, or wheezing. Denied any nausea, vomiting, abdominal pain, diarrhea, or constipation. Denied any other neurologic symptoms. PAST MEDICAL HISTORY: As described, nonobstructive coronary artery disease, hyperlipidemia, hypertension. PAST SURGICAL HISTORY: Underwent foot surgery for many years ago. FAMILY HISTORY: Diabetes mellitus in mother and father. Denies any family history of coronary artery disease. PERSONAL HISTORY: He is , having three children, works for [employer]. SOCIAL HISTORY: Denies smoking. Drinks alcohol socially. Denies any drug abuse. ALLERGIES: NO KNOWN DRUG ALLERGIES. MEDICATIONS: His medications from home include Crestor 10 mg p.o. at bedtime, metoprolol 12.5 mg p.o. daily, aspirin 81 mg daily. REVIEW OF SYSTEMS: As described in history of present illness. All other systems reviewed and were found to be negative. PHYSICAL EXAMINATION: GENERAL: Young male, lying in bed, in no acute distress. VITAL SIGNS: Blood pressure 110/67, pulse 63, respirations 20, temperature 98.2 degrees Fahrenheit, O2 saturation is 97% on room air. HEENT: Pupils equal, round, and reactive to light and accommodation. Extraocular muscles intact. No icterus. No pallor. No oral thrush. No pharyngeal congestion. NECK: Supple. No JVD. No thyromegaly. CHEST: Moving equally bilaterally on respiration. LUNGS: Bilateral vesicular breath sounds. No wheezing. No rhonchi. CARDIOVASCULAR SYSTEM: S1, S2 present, regular. ABDOMEN: Soft, nontender. Bowel sounds present. No guarding. No rigidity. No rebound tenderness noted. CENTRAL NERVOUS SYSTEM: Alert, awake, and oriented x3. No focal deficits noted. EXTREMITIES: No edema. Palpable peripheral pulses. LABORATORY DATA: Labs done from the ED, WBC 5.9, hemoglobin 13.9, hematocrit 43.3, and platelets 197. PT 13.6, INR 1.2, PTT 37. Sodium 141, potassium 3.7, chloride 103, bicarbonate 29, BUN 13, creatinine 0.8, glucose 92, calcium 8.6, total bilirubin 0.6, AST 22, ALT 28, alkaline phosphatase 55. Cardiac enzymes negative. Total protein 10.6, albumin 4.4. Chest x-ray done from ED negative for any infiltrate. EKG consistent with normal sinus rhythm. No acute ST-T changes. Heart rate is 68 beats per minute. Minimal voltage criteria for LVH. ASSESSMENT AND PLAN: Young male with history of hypertension, hyperlipidemia, status post cardiac catheterization in 08/2017 consistent with nonobstructive coronary artery disease, recommended medical management, status post colonoscopy and esophagogastroduodenoscopy consistent with Helicobacter pylori positive, status post treatment, has been following up with sewage reticulation drafting officer as outpatient and primary care physician, Dr. Wolfe, came into the emergency room with persistent pain in the retrosternal region for the past five days without any associated symptoms. In ED, patient was found to be having no EKG changes and troponin were negative and patient is being admitted for further evaluation. 1. Chest pain in a patient with prior history of nonobstructive coronary artery disease. His symptoms are more likely to be gastrointestinal origin from gastritis with history of Helicobacter pylori gastritis, rule out acute coronary syndrome. 2. Hypertension. 3. Hyperlipidemia. PLAN: Patient is being admitted to telemetry. We will do serial cardiac enzymes, serial EKGs. We will check echocardiogram. Cardiology consult appreciated. We will give Protonix 40 mg IV daily. We will continue with other home medications. Discussed with patient at length and patient is willing to follow up with Gastroenterology as outpatient, that he has been following up from Dr. Wolfe's office. We will add further recommendation as his clinical course progresses. Chaitanya Darby MD
== END 2018-06-27 19:56 | disposition home or self-care (01) | DRG 392 ==
LOC: C.ER 14:40 → C.9E 17:52 → C.6T 18:49
PROVIDERS: ADMIT Internal Medicine; ATTEND Internal Medicine
DX: K21.9 Gastro-esophageal reflux disease without esophagitis (principal); I25.10 Atherosclerotic heart disease of native coronary artery without angina pectoris; E78.5 Hyperlipidemia, unspecified; I10 Essential (primary) hypertension